=== PATIENT | female | born 1985 | race Caucasian/White ===

== ENCOUNTER → 2018-10-01 | Emergency (ER) | payer OTHER ==
[~2018-10-01] VITALS: Ht 154.9 cm; Wt 49.9 kg
[~2018-10-01] MED LIST: ZOLOFT25 MG PO
== END | disposition left against medical advice (07) ==
LOC: ER 21:13
DX: G89.11 Acute pain due to trauma (principal); R51 Headache

== ENCOUNTER 2019-03-30 16:53 | Emergency (ER) | payer OTHER ==
[~2019-03-30] VITALS: Ht 154.9 cm; Wt 51.7 kg
[2019-03-30] MEDS ORDERED: LEVOFLOXACIN500 MG PO (17:29)
[2019-03-30] MEDS ORDERED: BETAMETHASO IJ (17:30)
== END 2019-03-30 19:42 | disposition home or self-care (01) ==
LOC: ER 16:53
DX: N61.0 Mastitis without abscess (principal)

== ENCOUNTER 2019-04-06 22:16 | Emergency (ER) | payer OTHER ==
[~2019-04-06] VITALS: Ht 154.9 cm; Wt 53.5 kg
[~2019-04-06 22:16] MED LIST changes: +BETAMETHASO IJ; +LEVOFLOXACIN500 MG PO
== END 2019-04-06 23:30 | disposition home or self-care (01) ==
LOC: ER 22:16
DX: T81.49XA Infection following a procedure, other surgical site, initial encounter (principal); N61.0 Mastitis without abscess